=== PATIENT | female | born 1945 | race Caucasian/White ===

== ENCOUNTER → 2017-03-18 | Outpatient (CLI) | payer MEDICARE, OTHER ==
[~2017-03-18] MED LIST: FERR325C PO; OXYB5TAB PO; ZOCO10TA PO
[2017-03-18 13:06] LABS: ALT (GPT) 23 U/L (10-53); ANION GAP 5 MEQ/L (5-15); AST (GOT) 17 U/L (15-37); BICARBONATE 30.3 MEQ/L (21.0-32.0); BLOOD UREA NITROGEN 17 MG/DL (7-18); CHLORIDE 105 MEQ/L (98-107); GLOMERULAR FILTRATION RATE 73 ML/MIN (>89); GLUCOSE,FASTING 88 MG/DL (74-99); POTASSIUM 3.8 MEQ/L (3.5-5.1); SODIUM (NA) 140 MEQ/L (136-145)
[2017-03-18 13:08] LABS: ALKALINE PHOSPHATASE 79 U/L (45-117); HDL CHOLESTEROL 76.2 MG/DL (40.0-60.0); LDL CHOLESTEROL 142 MG/DL (0-99); TOTAL BILIRUBIN ADULT 0.7 MG/DL (0.2-1.0)
== END ==
LOC: CLAB 11:45
PROVIDERS: ATTEND Family Medicine
DX: E78.5 Hyperlipidemia, unspecified (principal); M85.9 Disorder of bone density and structure, unspecified
CPT/HCPCS: 36415; 80053; 80061; 82306

== ENCOUNTER 2017-06-12 22:32 | Observation (INO) | payer MEDICARE, OTHER ==
[~2017-06-12] VITALS: Ht 152.4 cm; Wt 57.0 kg
[2017-06-12 22:34] VITALS: BP 189/106; PULSE 125; RESP 18; TEMP 98.6; O2SAT 100
[2017-06-12] MEDS ORDERED: SODIUM CHLORIDE 0.9% FLUSH 10 ML FLUSH IVF PRN (23:00)
--- NOTE | 2017-06-12 23:05 | PD ---
HPI Chief Complaint: Chest Pain Time Seen by Provider: 23:01 Travel History International Travel<30 days: No Contact w/Intl Traveler<30days: No Traveled to known affect area: No History of Present Illness HPI 72-year-old female patient with previous history of chest pain episodes, here because she had an episode of chest pain yesterday, it is now gone. She states it radiated up her left jaw and neck. She denies any nausea, shortness of breath, or any other symptoms. She states that she has been evaluated with cardiac evaluation a few years ago when she had chest pains last time and it was all negative. Modifying Factors: None Associated Signs & Symptoms: Left-sided chest pain with radiation up to the jaw and neck Risk Factors: Elderly PFSH Past Medical History Arthritis: Yes (OSTEO) Heart Rhythm Problems: No Cancer: Yes (RT. BREAST) Cardiac Catheterization: No Cardiovascular Problems: No High Cholesterol: Yes Chemotherapy: Yes (IN 2001) Congestive Heart Failure: No Diabetes: No Diminished Hearing: No GERD: Yes Hypertension: No Immunizations Current: Yes Myocardial Infarction: No Menopausal: Yes Past Surgical History Coronary Artery Bypass Graft: No Genitourinary Surgery: Yes Other Surgery: Yes (RT.MASTECTOMY SEC. TO RT. BREAST CA IN 2001) Family History Family Myocardial Infarction: No Social History Alcohol Use: No Tobacco Use: No Substance Use: No Allergies-Medications (Allergen,Severity, Reaction): Coded Allergies: Sulfa (Sulfonamide Antibiotics) (Verified Allergy, Severe, 06/12/17) acetaminophen (Verified Allergy, Severe, Nausea/Vomiting, 06/12/17) lidocaine (Verified Allergy, Severe, 06/12/17) propoxyphene (Verified Allergy, Severe, 06/12/17) soybean (Verified Allergy, Severe, CLOSE UP THROAT, 06/12/17) metronidazole (Verified Allergy, Intermediate, ITCH, HIVES, INFLAMM, ) Reported Meds & Prescriptions Reported Meds & Active Scripts Active Reported Oxybutynin ER 24 HR (Oxybutynin Chloride) 5 Mg Tab 5 Mg PO DAILY Zocor (Simvastatin) 10 Mg Tab 10 Mg PO DAILY Review of Systems Except as stated in HPI: all other systems reviewed are Neg Physical Exam Narrative GENERAL: Pleasant well-developed elderly white female patient currently in no acute distress. Awake and oriented 3. SKIN: Focused skin assessment warm/dry. HEAD: Atraumatic. Normocephalic. EYES: Pupils equal and round. No scleral icterus. No injection or drainage. ENT: No nasal bleeding or discharge. Mucous membranes pink and moist. NECK: Trachea midline. No JVD. Supple. CARDIOVASCULAR: Regular rate and rhythm. No murmur appreciated. Pulses are present and equal bilaterally. RESPIRATORY: No accessory muscle use. Clear to auscultation. Breath sounds equal bilaterally. GASTROINTESTINAL: Abdomen soft, non-tender, nondistended. Hepatic and splenic margins not palpable. MUSCULOSKELETAL: No obvious deformities. No clubbing. No cyanosis. No edema. NEUROLOGICAL: Awake and alert. No obvious cranial nerve deficits. Motor grossly within normal limits. Normal speech. PSYCHIATRIC: Appropriate mood and affect; insight and judgment normal. Data Data Last Documented VS Vital Signs Date Time Temp Pulse Resp B/P (MAP) Pulse Ox O2 Delivery O2 Flow Rate FiO2 06/12/17 22:34 98.6 125 18 189/106 (133) 100 Room Air Orders Orders Electrocardiogram (06/12/17 ) Electrocardiogram (06/12/17 22:54) Ckmb (Isoenzyme) Profile (06/12/17 22:54) Complete Blood Count With Diff (06/12/17 22:54) Comprehensive Metabolic Panel (06/12/17 22:54) Magnesium (Mg) (06/12/17 22:54) Prothrombin Time / Inr (Pt) (06/12/17 22:54) Act Partial Throm Time (Ptt) (06/12/17 22:54) Troponin I (06/12/17 22:54) Ecg Monitoring (06/12/17 22:54) Bilateral Bp Monitoring (06/12/17 22:54) Iv Access Insert/Monitor (06/12/17 22:54) Oximetry (06/12/17 22:54) Oxygen Administration (06/12/17 22:54) Sodium Chloride 0.9% Flush (Ns Flush) (06/12/17 23:00) Chest, Pa & Lat (06/12/17 22:54) Lipase (06/12/17 23:32) Potassium Chloride Eff (K-Lyte Cl Eff) (06/13/17 00:15) Labs Laboratory Tests Test 06/12/17 23:00 White Blood Count 10.3 TH/MM3 Red Blood Count 4.27 MIL/MM3 Hemoglobin 13.6 GM/DL Hematocrit 39.8 % Mean Corpuscular Volume 93.2 FL Mean Corpuscular Hemoglobin 31.9 PG Mean Corpuscular Hemoglobin Concent 34.3 % Red Cell Distribution Width 13.6 % Platelet Count 311 TH/MM3 Mean Platelet Volume 9.3 FL Neutrophils (%) (Auto) 72.2 % Lymphocytes (%) (Auto) 21.7 % Monocytes (%) (Auto) 4.9 % Eosinophils (%) (Auto) 0.5 % Basophils (%) (Auto) 0.7 % Neutrophils # (Auto) 7.4 TH/MM3 Lymphocytes # (Auto) 2.2 TH/MM3 Monocytes # (Auto) 0.5 TH/MM3 Eosinophils # (Auto) 0.1 TH/MM3 Basophils # (Auto) 0.1 TH/MM3 CBC Comment DIFF FINAL Differential Comment Prothrombin Time 9.9 SEC Prothromb Time International Ratio 1.0 RATIO Activated Partial Thromboplast Time 29.2 SEC Blood Urea Nitrogen 17 MG/DL Creatinine 0.83 MG/DL Random Glucose 139 MG/DL Total Protein 9.1 GM/DL Albumin 4.8 GM/DL Calcium Level 9.4 MG/DL Magnesium Level 2.1 MG/DL Alkaline Phosphatase 93 U/L Aspartate Amino Transf (AST/SGOT) 18 U/L Alanine Aminotransferase (ALT/SGPT) 23 U/L Total Bilirubin 0.6 MG/DL Sodium Level 141 MEQ/L Potassium Level 3.2 MEQ/L Chloride Level 105 MEQ/L Carbon Dioxide Level 28.3 MEQ/L Anion Gap 8 MEQ/L Estimat Glomerular Filtration Rate 67 ML/MIN Total Creatine Kinase 80 U/L Troponin I LESS THAN 0.02 NG/ML MDM Medical Decision Making Medical Screen Exam Complete: Yes Emergency Medical Condition: Yes Medical Record Reviewed: Yes Interpretation(s) EKG shows sinus tachycardia at a rate of 110 bpm with a right bundle branch block pattern. No signs of acute ST elevations or depressions. Laboratory Tests Test 06/12/17 23:00 Neutrophils (%) (Auto) 72.2 % (16.0-70.0) Random Glucose 139 MG/DL (74-106) Total Protein 9.1 GM/DL (6.4-8.2) Potassium Level 3.2 MEQ/L (3.5-5.1) Estimat Glomerular Filtration Rate 67 ML/MIN (>89) Troponin I LESS THAN 0.02 NG/ML Last 24 hours Impressions Chest X-Ray 06/12/17 1330 Signed Impressions: Service Date/Time: Monday, June 12, 2017 23:15 - CONCLUSION: No evidence of acute cardiopulmonary disease. Gustavo López MD Differential Diagnosis ACS versus dysrhythmias versus muscular skeletal Narrative Course EKG shows a right bundle branch block. No signs of other acute dysrhythmias identified. Lab work was fairly unremarkable except for mildly low potassium. P.o. potassium was given in the ER. Cardiac enzymes are negative. At this point, my plan would be to admit her for further cardiac evaluation for the chest pains. Diagnosis Primary Impression: Chest pain Admitting Information Admitting Physician Requests: Admit Faith Campbell MD Jun 12, 2017 23:05
[2017-06-12 23:32] LABS: AUTOMATED NEUTROPHIL # 7.4 TH/MM3 (1.8-7.7); BASOPHIL # 0.1 TH/MM3 (0-0.2); BASOPHIL % 0.7 % (0.0-2.0); EOSINOPHIL # 0.1 TH/MM3 (0-0.4); EOSINOPHIL % 0.5 % (0.0-4.0); HEMATOCRIT 39.8 % (35.0-46.0); HEMOGLOBIN 13.6 GM/DL (11.6-15.3); LYMPH % 21.7 % (9.0-44.0); LYMPHOCYTE # 2.2 TH/MM3 (1.0-4.8); MEAN CELL VOLUME 93.2 FL (80.0-100.0); MEAN CORPUSCULAR HEMOGLOBIN 31.9 PG (27.0-34.0); MEAN CORPUSCULAR HGB CONC 34.3 % (32.0-36.0); MEAN PLATELET VOLUME 9.3 FL (7.0-11.0); MONO % 4.9 % (0.0-8.0); MONOCYTE # 0.5 TH/MM3 (0-0.9); NEUT % 72.2 % (16.0-70.0); PLATELET COUNT 311 TH/MM3 (150-450); RED BLOOD COUNT 4.27 MIL/MM3 (4.00-5.30); RED CELL DISTRIBUTION WIDTH 13.6 % (11.6-17.2); WHITE BLOOD COUNT 10.3 TH/MM3 (4.0-11.0)
--- NOTE | 2017-06-12 23:42 | RADRPT ---
EXAM DATE/TIME: 06/12/2017 23:15 [facility] COMPARISON: CHEST SINGLE AP, February 08, 2014, 16:08. INDICATIONS : Chest pain and indigestion MEDICAL HISTORY : None. SURGICAL HISTORY : Mastectomy, right. ENCOUNTER: Initial ACUITY: 1 day PAIN SCORE: 7/10 LOCATION: Bilateral chest FINDINGS: PA and lateral views of the chest demonstrate the lungs to be symmetrically aerated without evidence of mass, infiltrate or effusion. The cardiomediastinal contours are unremarkable. Osseous structure s are intact. Surgical changes of the right breast are again noted on the right. CONCLUSION: No evidence of acute cardiopulmonary disease. Gustavo López MD on June 12, 2017 at 23:40 Board Certified Radiologist. This report was verified electronically.
[2017-06-12 23:43] LABS: PROTHROMBIN TIME - PATIENT 9.9 SEC (9.8-11.6)
[2017-06-12 23:57] LABS: ALBUMIN 4.8 GM/DL (3.4-5.0); ALT (GPT) 23 U/L (10-53); AST (GOT) 18 U/L (15-37); BICARBONATE 28.3 MEQ/L (21.0-32.0); BLOOD UREA NITROGEN 17 MG/DL (7-18); CALCIUM 9.4 MG/DL (8.5-10.1); CHLORIDE 105 MEQ/L (98-107); CREATININE 0.83 MG/DL (0.50-1.00); GLOMERULAR FILTRATION RATE 67 ML/MIN (>89); GLUCOSE,RANDOM 139 MG/DL (74-106); MAGNESIUM 2.1 MG/DL (1.5-2.5); SODIUM (NA) 141 MEQ/L (136-145)
[2017-06-13 00:01] LABS: ALKALINE PHOSPHATASE 93 U/L (45-117); TOTAL BILIRUBIN ADULT 0.6 MG/DL (0.2-1.0); TOTAL PROTEIN 9.1 GM/DL (6.4-8.2); TROPONIN I LESS THAN 0.02 NG/ML (0.02-0.05)
[2017-06-13] MEDS ORDERED: SODIUM CHLORIDE 0.9% FLUSH 10 ML FLUSH IV FLUSH PRN (00:15)
[2017-06-13] MEDS ORDERED: POTASSIUM CHLORIDE 25 MEQ EFFERVESCENT TAB PO ONE (00:15)
[2017-06-13 00:30] VITALS: BP 147/82; PULSE 103; RESP 16; O2SAT 98
[2017-06-13 02:54] LABS: TROPONIN I LESS THAN 0.02 NG/ML (0.02-0.05)
[2017-06-13 04:00] VITALS: BP 174/74; PULSE 89; RESP 18; TEMP 98.5; O2SAT 99
[2017-06-13 06:21] LABS: TROPONIN I LESS THAN 0.02 NG/ML (0.02-0.05)
[2017-06-13 07:03] VITALS: O2SAT 98
[2017-06-13] MEDS ORDERED: ONDANSETRON HCL 4 MG/2 ML VIAL IV PUSH PRN (07:30)
[2017-06-13] MEDS ORDERED: NITROGLYCERIN 0.4 MG SL 25 TABS/BTL SL PRN (07:30)
[2017-06-13 08:00] VITALS: PULSE 72; PULSE 76
[2017-06-13 08:14] VITALS: BP 156/70; PULSE 90; RESP 16; TEMP 97.5; O2SAT 97
--- NOTE | 2017-06-13 08:55 | HHI.HP ---
HPI Primary Care Physician Braxton Seals M.D. Chief Complaint Chest pain History of Present Illness 72-year-old extremely pleasant female with long-standing acid reflux presents to emergency room for further evaluation of chest pain. Reporting multiple GERD "flares" over the years and mimics symptoms of a "heart attack area." Expresses current symptoms similar to past GERD "flares" however decided to come to ER for further evaluation. Endorses recently changed her diet, adding chocolate early in the week, normally never eating chocolate. Onset of symptoms afternoon. Characterized as sharp and heaviness. Location generalized chest. With occasional radiation to left shoulder. Duration constant with brief intermittent decrease of symptoms. Occasionally left and right arm feels numb and fingers become "tingly." No associated symptoms of nausea, vomiting, dyspnea, or diaphoresis. Precipitating factor she relates adding chocolate to diet. No known relieving factors. Closely follow with GI. , Last endoscopy January 2016. Reports stomach cyst found removed, and taken off PPI. Review of Systems General: No fatigue,weakness, fever, chills, recent illness, or change in appetite. Has been in her general state of health. 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 HEENT: No ARCHER, no vision changes, no nasal congestion or drainage, no dysphasia CV: As stated above. No current chest pain or pressure. RESP: No SOB, cough, wheeze GI: No nausea, vomiting, bowel changes, diarrhea, constipation, pain, distention , melena, or blood in the stool. No unintentional weight gain or weight loss. : No dysuria, urgency, frequency EXT: No lower leg edema, no paraesthesias MS: No discomfort or change in ROM NEURO: No change in memory, difficulty with balance, LOC, motor/sensory deficits PSYCH: No anxiety, depression. SKIN: No rashes, no concerning lesions Past Family Social History Allergies: Coded Allergies: Sulfa (Sulfonamide Antibiotics) (Verified Allergy, Severe, 06/12/17) acetaminophen (Verified Allergy, Severe, Nausea/Vomiting, 06/12/17) lidocaine (Verified Allergy, Severe, 06/12/17) propoxyphene (Verified Allergy, Severe, 06/12/17) soybean (Verified Allergy, Severe, CLOSE UP THROAT, 06/12/17) metronidazole (Verified Allergy, Intermediate, ITCH, HIVES, INFLAMM, ) Past Medical History Hyperlipidemia, GERD, breast cancer, osteoarthritis Past Surgical History Right mastectomy (2001) (chemotherapy 2001) Reported Medications Reported Meds & Active Scripts Active Reported Oxybutynin ER 24 HR (Oxybutynin Chloride) 5 Mg Tab 5 Mg PO DAILY Zocor (Simvastatin) 10 Mg Tab 10 Mg PO DAILY Ranitidine 150 mg as needed Active Ordered Medications Current Medications Medications (Trade) Dose Ordered Sig/Alexandrea Route Start Time Stop Time Status Last Admin (NS Flush) 2 ml UNSCH PRN IV FLUSH 06/13/17 00:15 (NS Flush) 2 ml BID IV FLUSH 06/13/17 09:00 (Aspirin) 325 mg DAILY PO 06/13/17 09:00 (Zofran Inj) 4 mg Q6H PRN IV PUSH 06/13/17 07:30 (Nitrostat Sl) 0.4 mg Q5M PRN SL 06/13/17 07:30 Social History Known hyperlipidemia. No known coronary artery disease, hypertension, or diabetes. Lifelong nonsmoker. . 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 Past cardiac testing 02/09/14 Lexiscan no stress-induced ischemia. Physical Exam Vital Signs Vital Signs Date Time Temp Pulse Resp B/P (MAP) Pulse Ox O2 Delivery O2 Flow Rate FiO2 06/13/17 08:14 97.5 90 16 156/70 (98) 97 06/13/17 07:03 98 21 06/13/17 04:13 06/13/17 04:00 98.5 89 18 174/74 (107) 99 06/13/17 00:30 103 16 147/82 (103) 98 Room Air 06/12/17 22:34 98.6 125 18 189/106 (133) 100 Room Air Physical Exam GENERAL: Alert WN, WD, NAD, pleasant, friendly female HEAD: NC, AT CV: RRR, without murmur, rub, gallop, no JVD, S1-S2 no S3-S4. Chest wall nontender with palpation. RESP: Clear lungs throughout bilateral, no crackles, wheeze, rhonchi, symmetrical chest rise, nonlabored, able to speak in full sentences ABD: Soft, NT, ND, no masses, positive bowel tones EXT: Pulses +24, no dependent edema MS: Normal tone 4 extremities, nontender, no obvious deformities, full range of motion NEURO: CN II through CN XII grossly intact, motor strength 5/5 PSYCH: A+O 3, pleasant affect, appropriate speech, mood, insight and judgment SKIN: Normal turgor, normal texture, no lesions, no rashes, brisk cap refill, even hair distribution Laboratory Laboratory Tests Test 06/12/17 23:00 06/13/17 02:00 06/13/17 05:10 White Blood Count 10.3 Red Blood Count 4.27 Hemoglobin 13.6 Hematocrit 39.8 Mean Corpuscular Volume 93.2 Mean Corpuscular Hemoglobin 31.9 Mean Corpuscular Hemoglobin Concent 34.3 Red Cell Distribution Width 13.6 Platelet Count 311 Mean Platelet Volume 9.3 Neutrophils (%) (Auto) 72.2 Lymphocytes (%) (Auto) 21.7 Monocytes (%) (Auto) 4.9 Eosinophils (%) (Auto) 0.5 Basophils (%) (Auto) 0.7 Neutrophils # (Auto) 7.4 Lymphocytes # (Auto) 2.2 Monocytes # (Auto) 0.5 Eosinophils # (Auto) 0.1 Basophils # (Auto) 0.1 CBC Comment DIFF FINAL Differential Comment Prothrombin Time 9.9 Prothromb Time International Ratio 1.0 Activated Partial Thromboplast Time 29.2 Blood Urea Nitrogen 17 Creatinine 0.83 Random Glucose 139 Total Protein 9.1 Albumin 4.8 Calcium Level 9.4 Magnesium Level 2.1 Alkaline Phosphatase 93 Aspartate Amino Transf (AST/SGOT) 18 Alanine Aminotransferase (ALT/SGPT) 23 Total Bilirubin 0.6 Sodium Level 141 Potassium Level 3.2 Chloride Level 105 Carbon Dioxide Level 28.3 Anion Gap 8 Estimat Glomerular Filtration Rate 67 Total Creatine Kinase 80 66 63 Troponin I LESS THAN 0.02 LESS THAN 0.02 LESS THAN 0.02 Lipase 167 Result Diagram: 06/12/17229906/12/172299 Imaging Last 48 hours Impressions Chest X-Ray 06/12/172253 Signed Impressions: Service Date/Time: Monday, June 12, 2017 23:15 - CONCLUSION: No evidence of acute cardiopulmonary disease. Gustavo López MD Course EKG NSR, Right BBB Caprini VTE Risk Assessment Caprini VTE Risk Assessment: Mod/High Risk (score >= 2) Caprini Risk Assessment Model Point Value = 1 Point Value = 2 Point Value = 3 Point Value = 5 Age 41-60 Minor surgery BMI > 25 kg/m2 Swollen legs Varicose veins or History of unexplained or recurrent spontaneous Oral contraceptives or hormone replacement Sepsis (< 1 month) Serious lung disease, including pneumonia (< 1 month) Abnormal pulmonary function Acute myocardial infarction Congestive heart failure (< 1 month) History of inflammatory bowel disease Medical patient at bed rest Age 61-74 Arthroscopic surgery Major open surgery (> 45 min) Laparoscopic surgery (> 45 min) Malignancy Confined to bed (> 72 hours) Immobilizing plaster cast Central venous access Age >= 75 History of VTE Family history of VTE Factor V Leiden Prothrombin [id number] Lupus anticoagulant Anticardiolipin antibodies Elevated serum homocysteine Heparin-induced thrombocytopenia Other congenital or acquired thrombophilia Stroke (< 1 month) Elective arthroplasty Hip, pelvis, or leg fracture Acute spinal cord injury (< 1 month) Prophylaxis Regimen Total Risk Factor Score Risk Level Prophylaxis Regimen 0-1 Low Early ambulation 2 Moderate Order ONE of the following: *Sequential Compression Device (SCD) *Heparin 5000 units SQ BID 3-4 Higher Order ONE of the following medications: *Heparin 5000 units SQ TID *Enoxaparin/Lovenox 40 mg SQ daily (WT < 150 kg, CrCl > 30 mL/min) *Enoxaparin/Lovenox 30 mg SQ daily (WT < 150 kg, CrCl > 10-29 mL/min) *Enoxaparin/Lovenox 30 mg SQ BID (WT < 150 kg, CrCl > 30 mL/min) AND/OR *Sequential Compression Device (SCD) 5 or more Highest Order ONE of the following medications: *Heparin 5000 units SQ TID (Preferred with Epidurals) *Enoxaparin/Lovenox 40 mg SQ daily (WT < 150 kg, CrCl > 30 mL/min) *Enoxaparin/Lovenox 30 mg SQ daily (WT < 150 kg, CrCl > 10-29 mL/min) *Enoxaparin/Lovenox 30 mg SQ BID (WT < 150 kg, CrCl > 30 mL/min) AND *Sequential Compression Device (SCD) Assessment and Plan Assessment and Plan #1 Atypical chest pain-admitted to chest pain. Ruled out with 3 sets of EKGs, cardiac enzymes, and monitored overnight. Seen and evaluated by Dr. Mike Molina. No further cardiac testing at this time, discomfort most likely GI. Discussed taking Nexium for a few days, no longer than one week. Follow-up with primary care provider, notifying Dr. Seals of admission in next few days. Plans to discharge home later this morning. Patient very agreeable to plan of care, prefers not to have nuclear stress test. Cece Maddox Jun 13, 2017 08:55
--- NOTE | 2017-06-13 08:56 | HHI.DCPOC ---
Discharge Care Plan Diagnosis: (1) Atypical chest pain (2) GERD (gastroesophageal reflux disease) Goals to Promote Your Health * To prevent worsening of your condition and complications * To maintain your health at the optimal level Directions to Meet Your Goals Take your medications as prescribed Follow your dietary instruction Follow activity as directed Keep your appointments as scheduled Take your immunizations and boosters as scheduled If your symptoms worsen call your PCP, if no PCP go to Urgent Care Center or Emergency Room Smoking is Dangerous to Your Health. Avoid second hand smoke Call the 24-hour hour crisis hotline for domestic abuse at Cece Maddox Jun 13, 2017 08:56
[2017-06-13] MEDS ORDERED: SODIUM CHLORIDE 0.9% FLUSH 10 ML FLUSH IV FLUSH SCH (09:00)
[2017-06-13] MEDS ORDERED: ASPIRIN 325 MG TAB PO SCH (09:00)
--- NOTE | 2017-06-13 09:01 | PD.CARD.PN ---
Subjective Subjective Remarks Very pleasant 72-year-old lady who was evaluated in the chest pain center several years ago by Dr. Gutierrez and is followed routinely by Dr. Seals and Dr. Egan. She presents with complaints of chest pain similar to episodes that she has had previously. She believes this started after she ate nearly a pound of chocolates over a few day period of time. She has long history of GI problems recently had a cyst removed from her stomach due to long-term use of Nexium. She believes this current episode is coming from her stomach but was concerned enough to come for evaluation. She has a history of hypertension long-standing history of GERD had breast cancer with chemo and noted Objective Medications Current Medications Medications (Trade) Dose Ordered Sig/Alexandrea Route Start Time Stop Time Status Last Admin (NS Flush) 2 ml UNSCH PRN IV FLUSH 06/13/17 00:15 (NS Flush) 2 ml BID IV FLUSH 06/13/17 09:00 (Aspirin) 325 mg DAILY PO 06/13/17 09:00 (Zofran Inj) 4 mg Q6H PRN IV PUSH 06/13/17 07:30 (Nitrostat Sl) 0.4 mg Q5M PRN SL 06/13/17 07:30 Vital Signs / I&O Vital Signs Date Time Temp Pulse Resp B/P (MAP) Pulse Ox O2 Delivery O2 Flow Rate FiO2 06/13/17 08:14 97.5 90 16 156/70 (98) 97 06/13/17 07:03 98 21 06/13/17 04:13 06/13/17 04:00 98.5 89 18 174/74 (107) 99 06/13/17 00:30 103 16 147/82 (103) 98 Room Air 06/12/17 22:34 98.6 125 18 189/106 (133) 100 Room Air Physical Exam Very pleasant well-nourished lady in no acute distress having no pain at the current time Neck no JVD and no bruits Chest is clear to auscultation Cardiovascular reveals a regular sinus rhythm with no gallop rub or murmur Abdomen is soft nontender with no guarding or rebound Laboratory Laboratory Tests Test 06/12/17 23:00 06/13/17 02:00 06/13/17 05:10 White Blood Count 10.3 TH/MM3 Red Blood Count 4.27 MIL/MM3 Hemoglobin 13.6 GM/DL Hematocrit 39.8 % Mean Corpuscular Volume 93.2 FL Mean Corpuscular Hemoglobin 31.9 PG Mean Corpuscular Hemoglobin Concent 34.3 % Red Cell Distribution Width 13.6 % Platelet Count 311 TH/MM3 Mean Platelet Volume 9.3 FL Neutrophils (%) (Auto) 72.2 % Lymphocytes (%) (Auto) 21.7 % Monocytes (%) (Auto) 4.9 % Eosinophils (%) (Auto) 0.5 % Basophils (%) (Auto) 0.7 % Neutrophils # (Auto) 7.4 TH/MM3 Lymphocytes # (Auto) 2.2 TH/MM3 Monocytes # (Auto) 0.5 TH/MM3 Eosinophils # (Auto) 0.1 TH/MM3 Basophils # (Auto) 0.1 TH/MM3 CBC Comment DIFF FINAL Differential Comment Prothrombin Time 9.9 SEC Prothromb Time International Ratio 1.0 RATIO Activated Partial Thromboplast Time 29.2 SEC Blood Urea Nitrogen 17 MG/DL Creatinine 0.83 MG/DL Random Glucose 139 MG/DL Total Protein 9.1 GM/DL Albumin 4.8 GM/DL Calcium Level 9.4 MG/DL Magnesium Level 2.1 MG/DL Alkaline Phosphatase 93 U/L Aspartate Amino Transf (AST/SGOT) 18 U/L Alanine Aminotransferase (ALT/SGPT) 23 U/L Total Bilirubin 0.6 MG/DL Sodium Level 141 MEQ/L Potassium Level 3.2 MEQ/L Chloride Level 105 MEQ/L Carbon Dioxide Level 28.3 MEQ/L Anion Gap 8 MEQ/L Estimat Glomerular Filtration Rate 67 ML/MIN Total Creatine Kinase 80 U/L 66 U/L 63 U/L Troponin I LESS THAN 0.02 NG/ML LESS THAN 0.02 NG/ML LESS THAN 0.02 NG/ML Lipase 167 U/L Imaging Last 24 hours Impressions Chest X-Ray 06/12/17 0153 Signed Impressions: Service Date/Time: Monday, June 12, 2017 23:15 - CONCLUSION: No evidence of acute cardiopulmonary disease. Gustavo López MD Assessment and Plan Assessment and Plan Patient has had previous walking stress test but was cautioned that she had an abnormality She underwent a Fabiola in 2013 this precipitated a significant episode of tachycardia and hypertension after completion of the test. She is desirous of avoiding a repeat study if possible. She has good consistent follow-up with Dr. mendez and with Dr. Jj and with her desire to avoid further testing she will be discharged to follow-up in the care since she has ruled out for ACS Code Status Full code Discussed Condition With Discussed situation with patient and with nurse practitioner Mike Molina MD Jun 13, 2017 09:01
--- NOTE | 2017-06-13 14:30 | EKG ---
Date Performed: 06/13/2017 Time Performed: 05:17:22 PTAGE: 72 years EKG: Sinus rhythm RIGHT BUNDLE BRANCH BLOCK ABNORMAL ECG NO SIG CHANGE NO PREVIOUS TRACING DOCTOR: Mike Molina Interpretating Date/Time 06/13/2017 14:29:40
--- NOTE | 2017-06-13 14:32 | EKG ---
Date Performed: 06/13/2017 Time Performed: 02:07:03 PTAGE: 72 years EKG: Sinus rhythm INCOMPLETE RIGHT BUNDLE BRANCH BLOCK BORDERLINE ECG INTERPRETATION BASED ON A DEFAULT AGE OF 40 YEAR S NO SIG CHANGE NO PREVIOUS TRACING DOCTOR: Mike Molina Interpretating Date/Time 06/13/2017 14:30:37
--- NOTE | 2017-06-13 14:32 | EKG ---
Date Performed: 06/12/2017 Time Performed: 22:55:05 PTAGE: 72 years EKG: SINUS TACHYCARDIA WITH OCCASIONAL VENTRICULAR PREMATURE COMPLEXES RIGHT BUNDLE BRANCH BLOCK ABNORMAL ECG INTERPRETATION BASED ON A DEFAULT AGE OF 40 YEARS NO SIG CHANGE NO PREVIOUS TRACING DOCTOR: Mike Molina Interpretating Date/Time 06/13/2017 14:31:07
== END 2017-06-13 11:38 | disposition home or self-care (01) ==
LOC: NEPC 22:32 → NEDA 06-13 00:13 → NEPGCP 06-13 04:26
PROVIDERS: ADMIT Internal Medicine Interventional Cardiology; ATTEND Internal Medicine Interventional Cardiology
DX: R07.89 Other chest pain (principal); R68.84 Jaw pain; K21.9 Gastro-esophageal reflux disease without esophagitis; M19.90 Unspecified osteoarthritis, unspecified site; E78.00 Pure hypercholesterolemia, unspecified; Z92.21 Personal history of antineoplastic chemotherapy; Z85.3 Personal history of malignant neoplasm of breast; I45.10 Unspecified right bundle-branch block; R00.0 Tachycardia, unspecified; R20.0 Anesthesia of skin; E78.5 Hyperlipidemia, unspecified; R94.31 Abnormal electrocardiogram [ECG] [EKG]; I10 Essential (primary) hypertension
CPT/HCPCS: 71046; 80053; 82550; 83690; 83735; 84484; 85025; 85610; 85730; 93005; 99285; G0378